=== PATIENT | female | born 1955 | race Caucasian/White ===

== ENCOUNTER 2019-04-03 21:12 | Emergency (ER) | payer MEDICARE, BC ==
[~2019-04-03] VITALS: Ht 157 cm; Wt 67.0 kg
[2019-04-03] MEDS ORDERED: DEXTROSE 50% 50 ML (IMS) SYR ONE (21:14)
[2019-04-03] MEDS ORDERED: DEXTROSE 50% 50 ML (IMS) SYR IV ONE (21:15)
--- NOTE | 2019-04-03 21:29 | ED Neurological Problem ---
General Chief Complaint: Altered Mental Status Stated Complaint: LOW BLOOD SUGAR Source: family, EMS History of Present Illness Date Seen by Provider: Apr 03, 2019 Time Seen by Provider: 21:20 Initial Comments pt presents via EMS...code RED Unresponsive. Suspected stroke at the scene and called for life flight, but due to weather they were not flying. Came to this ER without IV access and no change of status en-route. Just prior to ER arrival discovered Hypoglycemic w BS of 28. Further questioning of (after pt treated and awakened w no Neuro deficit) he says she has not had anything to eat since noon. Type II DM on oral meds. Allergies and Home Medications Allergies Coded Allergies: Adhesive (Verified Allergy, Unknown, 11/28/05) Silver (Verified Allergy, Unknown, 11/28/05) Patient Home Medication List Home Medication List Reviewed: Yes Review of Systems Review of Systems Constitutional: see HPI (unresponsive) Past Yaxowoj-Dyzgxe-Ggpwdc Hx Past Med/Social Hx: Reviewed Nursing Past Med/Soc Hx Patient Social History Recent Foreign Travel: No Contact w/Someone Who Travel: No Physical Exam Vital Signs Vital Signs - First Documented 04/03/19 21:15 Temp 36.2 Pulse 55 Resp 14 B/P (MAP) 138/64 (88) Pulse Ox 100 O2 Delivery Room Air Capillary Refill : Height, Weight, BMI Height: '" Weight: lbs. oz. kg; BMI Method: General Appearance: no apparent distress, other (unresponsive on arrival) Respiratory: chest non-tender, lungs clear Cardiovascular: no edema, no JVD, no murmur, bradycardia Gastrointestinal: non tender, soft Extremities: normal inspection, no pedal edema, normal capillary refill Progress/Results/Core Measures Results/Orders Lab Results Laboratory Tests Test 04/03/19 21:19 04/03/19 21:30 Range/Units White Blood Count 7.9 4.3-11.0 10^3/uL Red Blood Count 4.53 4.35-5.85 10^6/uL Hemoglobin 13.4 11.5-16.0 G/DL Hematocrit 42 35-52 % Mean Corpuscular Volume 93 80-99 FL Mean Corpuscular Hemoglobin 30 25-34 PG Mean Corpuscular Hemoglobin Concent 32 32-36 G/DL Red Cell Distribution Width 14.5 10.0-14.5 % Platelet Count 260 130-400 10^3/uL Mean Platelet Volume 12.1 H 7.4-10.4 FL Neutrophils (%) (Auto) 62 42-75 % Lymphocytes (%) (Auto) 28 12-44 % Monocytes (%) (Auto) 9 0-12 % Eosinophils (%) (Auto) 1 0-10 % Basophils (%) (Auto) 0 0-10 % Neutrophils # (Auto) 4.9 1.8-7.8 X 10^3 Lymphocytes # (Auto) 2.2 1.0-4.0 X 10^3 Monocytes # (Auto) 0.7 0.0-1.0 X 10^3 Eosinophils # (Auto) 0.1 0.0-0.3 10^3/uL Basophils # (Auto) 0.0 0.0-0.1 10^3/uL Sodium Level 146 H 135-145 MMOL/L Potassium Level 4.0 3.6-5.0 MMOL/L Chloride Level 105 98-107 MMOL/L Carbon Dioxide Level 27 21-32 MMOL/L Anion Gap 14 5-14 MMOL/L Blood Urea Nitrogen 32 H 7-18 MG/DL Creatinine 0.90 0.60-1.30 MG/DL Estimat Glomerular Filtration Rate > 60 BUN/Creatinine Ratio 36 Glucose Level 32 *L 70-105 MG/DL Calcium Level 10.3 H 8.5-10.1 MG/DL Corrected Calcium 10.0 8.5-10.1 MG/DL Total Bilirubin 0.2 0.1-1.0 MG/DL Aspartate Amino Transf (AST/SGOT) 25 5-34 U/L Alanine Aminotransferase (ALT/SGPT) 16 0-55 U/L Alkaline Phosphatase 39 L 40-136 U/L Troponin I < 0.30 <0.30 NG/ML Total Protein 7.2 6.4-8.2 GM/DL Albumin 4.4 3.2-4.5 GM/DL Urine Color YELLOW Urine Clarity CLEAR Urine pH 5.5 5-9 Urine Specific [place] 1.015 L 1.016-1.022 Urine Protein NEGATIVE NEGATIVE Urine Glucose (UA) 2+ H NEGATIVE Urine Ketones NEGATIVE NEGATIVE Urine Nitrite NEGATIVE NEGATIVE Urine Bilirubin NEGATIVE NEGATIVE Urine Urobilinogen 0.2 < = 1.0 MG/DL Urine Leukocyte Esterase 1+ H NEGATIVE Urine RBC (Auto) NEGATIVE NEGATIVE Urine RBC NONE /HPF Urine WBC 25-50 H /HPF Urine Squamous Epithelial Cells 2-5 /HPF Urine Crystals NONE /LPF Urine Bacteria TRACE /HPF Urine Casts NONE /LPF Urine Mucus NEGATIVE /LPF Urine Culture Indicated YES My Orders Orders - EDWARD KHANNA DO D50w (Emergency) Syringe (Dextrose 50% 5 (04/03/19 21:15) Ed Iv/Invasive Line Start (04/03/19 21:15) Cbc With Automated Diff (04/03/19 21:15) Comprehensive Metabolic Panel (04/03/19 21:15) Urinalysis (04/03/19 21:15) D50w (Emergency) Syringe (Dextrose 50% 5 (04/03/19 21:14) Troponin I Fs (04/03/19 21:24) Ekg Tracing (04/03/19 21:37) Accucheck Stat ONCE (04/03/19 21:37) Urine Culture (04/03/19 21:30) Medications Given in ED Current Medications Medications Dose Ordered Sig/Anthony Route Start Time Stop Time Status Last Admin Dose Admin Dextrose 50 ml ONCE ONCE IV 04/03/19 21:15 04/03/19 21:17 DC 04/03/19 21:18 50 ML Vital Signs/I&O 04/03/19 21:15 Temp 36.2 Pulse 55 Resp 14 B/P (MAP) 138/64 (88) Pulse Ox 100 O2 Delivery Room Air Progress Progress Note : Time: 22:08 Progress Note Pt doing well since sugars WNL, ate dinner and laughing and talking. Does not recall event. Not on insulin, but oral meds and does not have a Hx of freq Hypoglycemic episodes. Encouraged to check sugars when not feeling well or weak and for to be aware of possible hypoglycemic episodes to avoid getting to this point. Advised to notify PCP regarding episode as well. Departure Impression Primary Impression: Unresponsive state Additional Impression: Hypoglycemia Disposition: 01 HOME, SELF-CARE Condition: Improved Departure-Patient Inst. Decision time for Depature: 22:10 Patient Instructions: Low Blood Sugar, Adult (DC) EDWARD KHANNA DO Apr 03, 2019 21:29 POS
[2019-04-03 21:45] LABS: BASOPHILS % (AUTO) 0 % (0-10); EOSINOPHILS # (AUTO) 0.1 10^3/uL (0.0-0.3); EOSINOPHILS % (AUTO) 1 % (0-10); HEMATOCRIT 42 % (35-52); HEMOGLOBIN 13.4 G/DL (11.5-16.0); LYMPHOCYTES # (AUTO) 2.2 X 10^3 (1.0-4.0); LYMPHOCYTES % (AUTO) 28 % (12-44); MEAN CORPUSCULAR HEMOGLOBIN 30 PG (25-34); MEAN CORPUSCULAR HGB CONC 32 G/DL (32-36); MEAN CORPUSCULAR VOLUME 93 FL (80-99); MEAN PLATELET VOLUME 12.1 FL (7.4-10.4); MONOCYTES # (AUTO) 0.7 X 10^3 (0.0-1.0); MONOCYTES % (AUTO) 9 % (0-12); NEUTROPHILS # (AUTO) 4.9 X 10^3 (1.8-7.8); NEUTROPHILS % (AUTO) 62 % (42-75); PLATELET COUNT 260 10^3/uL (130-400); RED CELL DISTRIBUTION WIDTH 14.5 % (10.0-14.5); WHITE BLOOD COUNT 7.9 10^3/uL (4.3-11.0)
[2019-04-03 21:50] LABS: BUN/CREATININE RATIO 36; CARBON DIOXIDE 27 MMOL/L (21-32); CHLORIDE 105 MMOL/L (98-107); GFR ESTIMATED > 60; SODIUM 146 MMOL/L (135-145)
[2019-04-03 21:51] LABS: ALANINE AMINOTRANSFERASE 16 U/L (0-55); ALKALINE PHOSPHATASE 39 U/L (40-136); BILIRUBIN,TOTAL 0.2 MG/DL (0.1-1.0); CALCIUM 10.3 MG/DL (8.5-10.1)
[2019-04-03 21:52] LABS: COLOR,URINE YELLOW
[2019-04-03 21:52] LABS: ALBUMIN 4.4 GM/DL (3.2-4.5); TOTAL PROTEIN 7.2 GM/DL (6.4-8.2)
[2019-04-03 21:53] LABS: BACTERIA,URINE TRACE /HPF; BILIRUBIN,URINE NEGATIVE (NEGATIVE); CLARITY,URINE CLEAR; GLUCOSE, URINE (UA) 2+ (NEGATIVE); KETONES,URINE NEGATIVE (NEGATIVE); LEUKOCYTE ESTERASE ,URINE 1+ (NEGATIVE); NITRITE,URINE NEGATIVE (NEGATIVE); PH,URINE 5.5 (5-9); PROTEIN,URINE NEGATIVE (NEGATIVE); WBC,URINE 25-50 /HPF
[2019-04-03 22:01] LABS: GLUCOSE 32 MG/DL (70-105)
[2019-04-03 22:14] VITALS: BP 145/70
== END 2019-04-03 22:30 | disposition home or self-care (01) ==
LOC: EDUNIT# 21:12 → ER FS 21:13
DX: E11.641 Type 2 diabetes mellitus with hypoglycemia with coma (principal); Z88.8 Allergy status to other drugs, medicaments and biological substances
CPT/HCPCS: 36415; 80053; 81000; 84484; 85025; 87088; 93005; 96374

== ENCOUNTER 2020-03-11 14:15 | Emergency (ER) | payer MEDICARE, BC ==
[~2020-03-11] VITALS: Ht 160 cm; Wt 69.0 kg
--- NOTE | 2020-03-11 14:19 | ED Chest Pain ---
General Stated Complaint: CHEST PAIN Source: patient Exam Limitations: no limitations History of Present Illness Date Seen by Provider: Mar 11, 2020 Time Seen by Provider: 14:19 Initial Comments 65-year-old female presents with chest pain. She reports it started about 30 minutes prior to arrival. She states that she always has chest pain with exertion and has known coronary artery disease. She also has valvular disease. He has a director treasurer at [facility] that they are holding off doing any more stance because she will need a bypass at some point and state that they can't put any more stance and into the bypass. They're holding off to do the bypass based on her valvular issue. Patient presents because her pain started at rest today when it normally is only with exertion. She does not having diaphoresis she's not clammy feeling no nausea or vomiting. No shortness of breath Allergies and Home Medications Allergies Coded Allergies: Adhesive (Verified Allergy, Unknown, 11/28/05) Silver (Verified Allergy, Unknown, 11/28/05) Patient Home Medication List Home Medication List Reviewed: Yes Review of Systems Review of Systems Constitutional: No chills, No fever Respiratory: Denies Cough, Denies Shortness of Air Cardiovascular: Chest Pain, Irregular Heart Rate; Denies Lightheadedness, Denies Syncope Gastrointestinal: No Symptoms Reported Genitourinary: No Symptoms Reported Musculoskeletal: no symptoms reported Skin: no symptoms reported Psychiatric/Neurological: No Symptoms Reported Endocrine: No Symptoms Reported Past Vtlufyu-Hetchj-Wqglac Hx Past Med/Social Hx: Reviewed Nursing Past Med/Soc Hx Patient Social History Recent Hopitalizations: No Past Medical History Surgeries: Yes Appendectomy, Coronary Stent, Hysterectomy, Lumpectomy, Orthopedic Respiratory: No Cardiac: Yes Heart Attack, High Cholesterol, Hypertension Neurological: No Genitourinary: No Gastrointestinal: No Musculoskeletal: No Endocrine: No HEENT: No Cancer: No Psychosocial: No Integumentary: No Blood Disorders: No Physical Exam Vital Signs Vital Signs - First Documented 03/11/20 14:45 Temp 36.8 Pulse 146 Resp 18 B/P (MAP) 165/95 (118) Pulse Ox 98 O2 Delivery Room Air Capillary Refill : Height, Weight, BMI Height: '" Weight: lbs. oz. 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 Skin: Normal Color, Warm/Dry Progress/Results/Core Measures Results/Orders Lab Results Laboratory Tests Test 03/11/20 14:25 Range/Units White Blood Count 9.7 4.3-11.0 10^3/uL Red Blood Count 4.53 4.35-5.85 10^6/uL Hemoglobin 13.4 11.5-16.0 G/DL Hematocrit 41 35-52 % Mean Corpuscular Volume 91 80-99 FL Mean Corpuscular Hemoglobin 30 25-34 PG Mean Corpuscular Hemoglobin Concent 33 32-36 G/DL Red Cell Distribution Width 14.1 10.0-14.5 % Platelet Count 287 130-400 10^3/uL Mean Platelet Volume 11.7 H 7.4-10.4 FL Immature Granulocyte % (Auto) 0 % Neutrophils (%) (Auto) 75 42-75 % Lymphocytes (%) (Auto) 20 12-44 % Monocytes (%) (Auto) 5 0-12 % Eosinophils (%) (Auto) 0 0-10 % Basophils (%) (Auto) 0 0-10 % Neutrophils # (Auto) 7.2 1.8-7.8 X 10^3 Lymphocytes # (Auto) 2.0 1.0-4.0 X 10^3 Monocytes # (Auto) 0.5 0.0-1.0 X 10^3 Eosinophils # (Auto) 0.0 0.0-0.3 10^3/uL Basophils # (Auto) 0.0 0.0-0.1 10^3/uL Immature Granulocyte # (Auto) 0.0 0.0-0.1 10^3/uL Prothrombin Time 13.2 12.2-14.7 SEC INR Comment 1.0 0.8-1.4 Activated Partial Thromboplast Time 23 L 24-35 SEC Sodium Level 139 135-145 MMOL/L Potassium Level 3.6 3.6-5.0 MMOL/L Chloride Level 99 98-107 MMOL/L Carbon Dioxide Level 24 21-32 MMOL/L Anion Gap 16 H 5-14 MMOL/L Blood Urea Nitrogen 32 H 7-18 MG/DL Creatinine 0.90 0.60-1.30 MG/DL Estimat Glomerular Filtration Rate > 60 BUN/Creatinine Ratio 36 Glucose Level 240 H 70-105 MG/DL Calcium Level 9.9 8.5-10.1 MG/DL Corrected Calcium 8.5-10.1 MG/DL Magnesium Level 2.3 1.6-2.4 MG/DL Total Bilirubin 0.3 0.1-1.0 MG/DL Aspartate Amino Transf (AST/SGOT) 21 5-34 U/L Alanine Aminotransferase (ALT/SGPT) 18 0-55 U/L Alkaline Phosphatase 40 40-136 U/L Troponin I < 0.30 <0.30 NG/ML Total Protein 7.6 6.4-8.2 GM/DL Albumin 4.8 H 3.2-4.5 GM/DL My Orders Orders - VILLALOBOS,GO L DO Cbc With Automated Diff (03/11/20 14:21) Magnesium (03/11/20 14:21) Chest 1 View Ap/Pa Only (03/11/20 14:21) Ekg Tracing (03/11/20 14:21) Comprehensive Metabolic Panel (03/11/20 14:21) Protime With Inr (03/11/20 14:21) Partial Thromboplastin Time (03/11/20 14:21) Monitor-Rhythm Ecg Trace Only (03/11/20 14:21) Aspirin Chewable Tablet (Baby Aspirin Ch (03/11/20 14:30) Ed Iv/Invasive Line Start (03/11/20 14:21) Troponin I Fs (03/11/20 14:21) Diltiazem Injection (Cardizem Injection) (03/11/20 14:30) Diltiazem Drip Pre-Mix (Cardizem Drip Pr (03/11/20 15:00) Diltiazem Cd 24 Hr Capsule (Cardizem Cd (03/12/20 09:00) Medications Given in ED Current Medications Medications Dose Ordered Sig/Anthony Route Start Time Stop Time Status Last Admin Dose Admin Aspirin 324 mg ONCE ONCE PO 03/11/20 14:30 03/11/20 14:31 DC 03/11/20 14:36 324 MG Diltiazem HCl 20 mg ONCE ONCE IVP 03/11/20 14:30 03/11/20 14:31 DC 03/11/20 14:36 20 MG Vital Signs/I&O 03/11/20 14:45 Temp 36.8 Pulse 146 Resp 18 B/P (MAP) 165/95 (118) Pulse Ox 98 O2 Delivery Room Air Progress Progress Note : Time: 15:59 Progress Note Shouldn't converted to a normal sinus rhythm. I did call and discuss with Dr. Henriquez office with on-call director treasurer. This time instead of transfer to [facility] we are going to start her on cardiac exam extended release 120 mg daily, Eliquis 5 mg twice daily and they will have her follow-up in the office next week. Diagnostic Imaging Diagonstic Imaging: Xray Plain Films/CT/US/NM/MRI: chest Comments [facility], [place] NAME: JONES TRUJILLO [facility] REC#: [id number] PT STATUS: REG ER : 1955 PHYSICIAN: GO VILLALOBOS DO ADMIT DATE: 03/11/20/ER FS Draft Date of Exam:03/11/20 CHEST 1 VIEW AP/PA ONLY INDICATION: chest pain. TECHNIQUE: Single view chest 2:42 PM. CORRELATION STUDY: None FINDINGS: The heart size, mediastinal configuration and pulmonary vascularity are within normal limits. The lungs are clear with no consolidating infiltrate. There is no significant effusion or pneumothorax. IMPRESSION: 1. Negative for acute abnormality of the chest. Dictated on workstation # [id number] Dict: 03/11/20 1501 Trans: 03/11/20 1501 DO [id number] Interpreted by: RAIN HILLS DO Electronically signed by: Reviewed: Reviewed by Me, Reviewed/Discussed Departure Impression Primary Impression: Atrial fibrillation Qualified Codes: I48.91 - Unspecified atrial fibrillation Disposition: HOME, SELF-CARE Condition: Stable Departure-Patient Inst. Referrals: [facility] (PCP) Primary Care Physician KARINA HYATT APRN (Family) Primary Care Physician Patient Instructions: Atrial Fibrillation (DC) Add. Discharge Instructions: Call your cardiology office on Saturday if you have not heard from them for an appointment next week Start the diltiazem exam tomorrow as you were given today's dose in the ER Start Eliquis today You may stop your daily aspirin Scripts Apixaban (Eliquis) 5 Mg Tablet 5 MG PO BID for 30 Days, #72 TAB TAKE 2 TABLETS BID X 7 DAYS, THEN 1 TABLET BID Prov: GO VILLALOBOS DO 03/11/20 Diltiazem HCl (Tiadylt ER) 120 Mg Cap.sa.24h 120 MG PO DAILY, #30 CAP Prov: GO VILLALOBOS DO 03/11/20 GO VILLALOBOS DO Mar 11, 2020 14:19
[2020-03-11] MEDS ORDERED: ASPIRIN 81 MG CHEW (CHILDREN'S ASA) PO ONE (14:30)
[2020-03-11 14:54] LABS: HEMATOCRIT 41 % (35-52); HEMOGLOBIN 13.4 G/DL (11.5-16.0); MEAN CORPUSCULAR HEMOGLOBIN 30 PG (25-34); WHITE BLOOD COUNT 9.7 10^3/uL (4.3-11.0)
[2020-03-11 14:55] LABS: BASOPHILS % (AUTO) 0 % (0-10); EOSINOPHILS % (AUTO) 0 % (0-10); LYMPHOCYTES % (AUTO) 20 % (12-44); MEAN CORPUSCULAR HGB CONC 33 G/DL (32-36); MEAN CORPUSCULAR VOLUME 91 FL (80-99); MEAN PLATELET VOLUME 11.7 FL (7.4-10.4); MONOCYTES # (AUTO) 0.5 X 10^3 (0.0-1.0); MONOCYTES % (AUTO) 5 % (0-12); NEUTROPHILS # (AUTO) 7.2 X 10^3 (1.8-7.8); NEUTROPHILS % (AUTO) 75 % (42-75); PLATELET COUNT 287 10^3/uL (130-400)
[2020-03-11 14:58] LABS: PROTHROMBIN TIME PATIENT 13.2 SEC (12.2-14.7)
[2020-03-11] MEDS ORDERED: dilTIAZem DRIP PRE-MIX 125 ML IV SCH (15:00)
--- NOTE | 2020-03-11 15:01 | Diagnostic Imaging Report ---
INDICATION: chest pain. TECHNIQUE: Single view chest 2:42 PM. CORRELATION STUDY: None FINDINGS: The heart size, mediastinal configuration and pulmonary vascularity are within normal limits. The lungs are clear with no consolidating infiltrate. There is no significant effusion or pneumothorax. IMPRESSION: 1. Negative for acute abnormality of the chest. Dictated by: Dictated on workstation # [id number]
[2020-03-11 15:11] LABS: CHLORIDE 99 MMOL/L (98-107); POTASSIUM 3.6 MMOL/L (3.6-5.0); SODIUM 139 MMOL/L (135-145)
[2020-03-11 15:12] LABS: ALANINE AMINOTRANSFERASE 18 U/L (0-55); ALBUMIN 4.8 GM/DL (3.2-4.5); ALKALINE PHOSPHATASE 40 U/L (40-136); BILIRUBIN,TOTAL 0.3 MG/DL (0.1-1.0); BUN/CREATININE RATIO 36; CALCIUM 9.9 MG/DL (8.5-10.1); CARBON DIOXIDE 24 MMOL/L (21-32); GFR ESTIMATED > 60; GLUCOSE 240 MG/DL (70-105); MAGNESIUM 2.3 MG/DL (1.6-2.4); TOTAL PROTEIN 7.6 GM/DL (6.4-8.2)
[2020-03-11] MEDS ORDERED: dilTIAZem120 MG (CARDIZEM CD) CAP PO ONE (15:58)
[2020-03-11] MEDS ORDERED: APIX5TAB PO (16:02)
[2020-03-11] MEDS ORDERED: DILT-96 PO (16:02)
[2020-03-11 16:30] VITALS: BP 144/74
[2020-03-12] MEDS ORDERED: dilTIAZem120 MG (CARDIZEM CD) CAP PO SCH (09:00)
== END 2020-03-11 16:33 | disposition home or self-care (01) ==
LOC: EDUNIT# 14:15 → ER FS 14:17
DX: I48.91 Unspecified atrial fibrillation (principal); I25.2 Old myocardial infarction; Z95.5 Presence of coronary angioplasty implant and graft
CPT/HCPCS: 36415; 71045; 80053; 83735; 84484; 85025; 85610; 85730; 93041

== ENCOUNTER 2021-02-03 10:48 | Outpatient (CLI) | payer MEDICARE, BC ==
[~2021-02-03] VITALS: Ht 157 cm; Wt 63.5 kg
[2021-02-03 10:35] VITALS: BP 140/57
[~2021-02-03 10:48] MED LIST: APIX5TAB PO; DILT-96 PO
[2021-02-03] MEDS ORDERED: diphenhydrAMINE 50 MG/ML INJ (BENADRYL) IV PRN (11:00)
[2021-02-03] MEDS ORDERED: ONDANSETRON 4 MG/2 ML (SDV) Z0FRAN IV PRN (11:00)
[2021-02-03] MEDS ORDERED: EPINEPHrine INJECTION 1 MG/ML AMP IM PRN (11:00)
[2021-02-03] MEDS ORDERED: ACETAMINOPHEN 500 MG TAB (TYLENOL) PO PRN (11:00)
[2021-02-03] MEDS ORDERED: CASIRIVIMAB/IMDEVIMAB 1,200 MG in NS (IVPB) 250 ML IV ONE (11:00)
[2021-02-03 12:35] VITALS: BP 118/59
== END 2021-02-03 13:04 | disposition home or self-care (01) ==
LOC: INFUSION 10:48
PROVIDERS: ATTEND Nurse Practitioner
DX: Z23 Encounter for immunization (principal); U07.1 COVID-19

== ENCOUNTER → 2021-02-10 | Outpatient (CLI) | payer MEDICARE, BC ==
--- NOTE | 2021-02-10 11:26 | Diagnostic Imaging Report ---
INDICATION: COVID 19, COUGH. TECHNIQUE: Two view chest 11:20 AM CORRELATION STUDY: 03/11/2020 FINDINGS: Poststernotomy changes. Heart size and mediastinum are stable. Vasculature may be slightly more prominent from prior. No consolidating infiltrate. Eventration of the anterior right diaphragm. Interstitial markings do appear to be slightly more prominent. Prominent bridging osteophytes to the thoracic spine. IMPRESSION: 1. Interval sternotomy changes. 2. Heart size stable. Vasculature and interstitial prominence, however, appears increased. This may reflect a component of mild edema. Follow-up imaging if clinically warranted. No definitive consolidating infiltrate at this time. Dictated by: Dictated on workstation # [id number]
== END ==
LOC: RAD FS 11:04
PROVIDERS: ATTEND Nurse Practitioner Family
DX: U07.1 COVID-19 (principal); Z98.890 Other specified postprocedural states
CPT/HCPCS: 71046

== ENCOUNTER → 2021-02-16 | Outpatient (CLI) | payer MEDICARE, BC ==
--- NOTE | 2021-02-16 15:00 | Diagnostic Imaging Report ---
INDICATION: Cough. TIME OF EXAM: 2:23 PM COMPARISON: Correlation is made with prior chest and 02/10/2021. Heart size is stable. There are changes of median sternotomy. Lungs are clear. No infiltrates are seen. There is no effusion or pneumothorax. IMPRESSION: No acute cardiopulmonary process is detected. Dictated by: Dictated on workstation # [id number]
== END ==
LOC: RAD FS 14:08
PROVIDERS: ATTEND Nurse Practitioner Family
DX: U07.1 COVID-19 (principal)
CPT/HCPCS: 71046